=== PATIENT | female | born 1950 | race Caucasian/White ===

== ENCOUNTER → 2019-10-21 | Outpatient (CLI) | payer OTHER ==
[~2019-10-21] MED LIST: DIPH25 PO; PRED10 PO; RANI150 PO
== END | disposition home or self-care (01) ==
LOC: PLD 09:18 → LAB SHORT 09:18
DX: L30.8 Other specified dermatitis (principal)
CPT/HCPCS: 88305; 88312

== ENCOUNTER 2022-03-16 08:19 | Day surgery (SDC) | payer OTHER ==
[~2022-03-16] VITALS: Ht 154.9 cm; Wt 73.2 kg
[~2022-03-16 08:19] MED LIST changes: +ATOR40TA PO; +GLUCOPHAGE1000 M1 PO; +JARDIANCE25 MG PO
[2022-03-16] MEDS ORDERED: CENTRUM SILVER1 EAC2 (08:44)
--- NOTE | 2022-03-16 09:04 | NUR ---
03/16/22 0904 BEN PRITCHETT 2 ATTEMPTS AT IV. FRIST ATTEMPT BY MA IN R HAND INFILTRATED. SECOND ATTEMPT BY MA IN L HAND SUCCESSFUL.
== END 2022-03-16 09:59 | disposition home or self-care (01) ==
LOC: ORSCSDS 08:19
PROVIDERS: Surgery
PROC: 0DJD8ZZ Inspection of Lower Intestinal Tract, Via Natural or Artificial Opening Endoscopic (ICD-10-PCS; principal; 2022-03-16 09:15)
DX: Z12.11 Encounter for screening for malignant neoplasm of colon (principal); K64.8 Other hemorrhoids; E11.9 Type 2 diabetes mellitus without complications; E78.5 Hyperlipidemia, unspecified; M85.80 Other specified disorders of bone density and structure, unspecified site; Q43.8 Other specified congenital malformations of intestine; Z79.84 Long term (current) use of oral hypoglycemic drugs; Z79.899 Other long term (current) drug therapy
CPT/HCPCS: 82947; J2704; J7120

== ENCOUNTER → 2024-05-23 | Outpatient (CLI) | payer OTHER ==
[~2024-05-23] MED LIST changes: +CENTRUM SILVER1 EAC2
[2024-05-23 17:06] LABS: Creatinine, Urine Random 84.8 mg/dL (27.00-270.00)
[2024-05-23 17:09] LABS: Microalb/Creat Ratio UR, Rand 33.019 mg/g (0.000-30.000)
== END ==
LOC: LAB 15:23 → LAB SHORT 15:23
PROVIDERS: Family Medicine
DX: E11.65 Type 2 diabetes mellitus with hyperglycemia (principal); E11.22 Type 2 diabetes mellitus with diabetic chronic kidney disease; E11.59 Type 2 diabetes mellitus with other circulatory complications
CPT/HCPCS: 82043; 82570